=== PATIENT | male | born 1980 | race Caucasian/White ===

== ENCOUNTER 2017-02-17 20:15 | Emergency (ER) | payer OTHER ==
[~2017-02-17] VITALS: Ht 188 cm; Wt 68.2 kg
[2017-02-17 20:21] VITALS: BP 128/91; PULSE 114; RESP 18; O2SAT 99
--- NOTE | 2017-02-17 22:31 | ED.REPORT ---
HPI- Male Date of Service Feb 17, 2017 ED Provider: Darryl Mcgregor MD A 36 year old male presents to the ED complaining of intermittent left testicular pain that began 1 year ago. Patient presents to the ED this evening because of worsening pain. The pain radiates from his left testicle to his lower abdomen. He has been taking doxycycline for the past week. Patient took Aspirin with no relief and denies taking any other OTC medications to help relieve his pain. He recently had a hernia repair at the [facility] one month ago and the pain has persisted. Patient was seen in the [place] ED two days ago for similar testicular pain. He was also seen in the [facility] ED in 2011 for similar pain. He denies fever, vomiting or penile discharge. Patient does not currently have a urologist. Nursing Notes Chief Complaint: Male Abdominal Pain Nursing Notes Reviewed: Yes Allergies: Coded Allergies: No Known Allergies (Verified Allergy, Unknown, 02/17/17) General Time Seen by MD: 21:53 Chief Complaint Testicle painful left Hx Obtained From: Patient Arrived By: Walk-in Onset Occurred: More than a week ago... (>6 months) Symptom Duration: Since onset Location: : Testicle left Quality: Painful Radiation: : Abdomen lower Severity: Current: Moderate Severity: Maximum: Moderate Associated with: Reports: Scrotal swelling, Denies: Fever, Penile discharge... Pertinent Negative: Pt denies other symptoms Recent Healthcare: No recent hospitalization, Recent doctor visit Past Medical History Past Medical History Notes: PCP: Dr. Lema ([place]) Past Medical History None reported. Past Surgical History Hernia repair 1 month ago at [facility] Smoking History Unknown if Ever Smoker Social History Other Social History: Local resident Ambulatory Status Independent Review of Systems Constitutional: Denies: Chills, Fever GI: Reports: Abdominal pain (radiates to lower abdominal pain ), Denies: Nausea, Vomiting Male: Reports Testicular pain, Reports Testicular swelling, Denies Penile discharge Complete sys rev & neg: except as marked. Physical Exam Initial Vital Signs Vital Signs (First) Date Time Temp Pulse Resp B/P Pulse Ox O2 Delivery O2 Flow Rate FiO2 02/17/17 20:21 37.1 114 18 128/91 99 Room Air Initial VS: Reviewed Neck: Supple, Non-tender, Full range of motion Skin: Warm, Dry, No cyanosis Neurologic: Alert, Oriented, Nonfocal Male Genitourinary: Penis NL (Uncircumcised with skin tags ) Testes / Epidid / Scrotum: Positive: Epididymis enlarged L, Epididymis tender L , Testis enlarged L, Testis tender L MALE : Left testicular erythema General/Constitutional: Awake, Alert Abdomen: Atraumatic, Soft Respiratory / Chest: Atraumatic, No respiratory distress Cardiovascular: Pulses = bilaterally Adenopathy: Positive: Inguinal adenopathy L Upper Extremity / MS: Atraumatic, Neurologic intact, Vascular intact Lower Extremity / Pelvis / MS: Atraumatic, Neurologic intact, Vascular intact Interpretation & Diagnostics Interpretation & Diagnostics: Urine culture ordered Lab Results Interpretation Test 02/17/17 23:30 Urine Color Yellow (YELLOW) Urine Appearance Hazy (CLEAR,HAZY) Urine pH 8.5 (5.0-8.0) Urine Specific [place] 1.025 (1.003-1.035) Urine Protein 30mg/dL (NEG,TRACE) Urine Glucose (UA) Negativemg/dL (NEGATIVE) Urine Ketones Tracemg/dL (NEGATIVE) Urine Occult Blood Negative (NEGATIVE) Urine Nitrite Negative (NEGATIVE) Urine Bilirubin Negative (NEGATIVE) Urine Urobilinogen Normalmg/dL (NORMAL) Urine Leukocyte Esterase Negative (NEGATIVE) Urine RBC 0-2/hpf (0-2) Urine WBC 6-10/hpf (0-5) Urine Epithelial Cells Occasional/hpf (NONE-MOD) Urine Crystals None seen (NONE SEEN) Urine Bacteria None/hpf (NONE-FEW) Urine Hyaline Casts None/lpf (NONE) Urine Granular Casts None seen (NONE SEEN) Urine Waxy Casts None seen (NONE SEEN) Urine Red Blood Cell Casts None seen (NONE SEEN) Urine White Blood Cell Casts None seen (NONE SEEN) Urine Mucus Present (None Seen) Urine Trichomonas None seen (NONE SEEN) Urine Yeast None (NONE SEEN) Urinalysis Comment Urine Culture Reflexed Not indicated Lab Results Interpretation: DRUG SCREEN: Positive methamphetamines Positive Oxycodone Re-Eval/Medical Decision Re-Evaluation/Progress : Time of Eval: 23:50 Patient Status: Condition unchanged Re-Evaluation/Progress Note: Patient is rechecked. No response to ketorolac. Mother is expressing concern because the patient has been reporting 10/10 pain for the past year and is seeking further evaluation. She is frustrated and acknowledges that the patient has had several previous US but is requesting another. Patient claims that Percocet was prescribed. Counseled Regarding: Diagnosis, Lab results, Need for follow-up, When/why to return to ED Discharge & Departure Shift Change Sign-Out Patient Care Transferred: Yes Discussed Complaint(s): Yes Laboratory Evaluation: Lab evaluation discussed Imaging Studies: Ordered, not yet done Response to Therapy: Unchanged Dr. Tucker Impression: Primary Impression: Left inguinal pain Disposition: Home Discharge Condition All VS Reviewed: Yes Condition: Improved Additional Instructions: ED evaluation tonight included interview, exam an UA. No acute cause for your pain is found tonight. given 1 year of pain, this needs to be further evaluated by your primary care doctor and possibly a urologist (see referral). Finish the doxycycline started earlier. May use ibuprofen 600mg every 6 hours as needed for pain. Wear supportive underwear and elevate scrotum when able. Referrals: Ahmet Carrasco MD Care Transferred at: 00:00 Ines Attestation Portions of this note were transcribed by Shannon Wan. I, Dr. Mcgregor personally performed the history, physical exam and medical decision-making; I reviewed and confirmed the accuracy of the information in the transcribed note. Signed by: Ines Abdi, 02/18/17 0000. copies to: Ahmet Carrasco MD, Donald L MD Feb 17, 2017 22:31 SHANNON WAN Feb 17, 2017 22:38
[2017-02-17 23:54] LABS: APPEARANCE,URINE HAZY (CLEAR,HAZY); COLOR,URINE YELLOW (YELLOW); OCCULT BLOOD,URINE NEGATIVE (NEGATIVE); PH,URINE 8.5 (5.0-8.0); UROBILINOGEN,URINE NORMAL (NORMAL)
[2017-02-18] MEDS ORDERED: oxyCODONE-Acetamin 5-325 mg Tablet PO ONE
[2017-02-18] MEDS ORDERED: MELO-253 PO (01:49)
[2017-02-18] MEDS ORDERED: DOXY100C2 PO (01:49)
[2017-02-18] MEDS ORDERED: OXYC1TAB24 PO (01:49)
[2017-02-18 01:58] VITALS: BP 139/91; PULSE 107; RESP 18; O2SAT 99
--- NOTE | 2017-02-18 09:37 | DRSVH ---
PROCEDURE: US TESTICULAR SONOGRAM WITH DOPPLER INDICATIONS: L testicular pain TECHNIQUE: Real-time scanning was performed of the scrotum and testicles, with image documentation. Color and p ulse Doppler interrogation was performed of both testicles. COMPARISON: None. FINDINGS: Right: Testicle is normal in size at 3.5 x 2.7 x 2.6 cm, and homogenous in echotexture. There are sc attered nonspecific microcalcifications Epididymis is hyperemic, and heterogeneous. No hydrocele or varicoceles. Overlying scrotal skin is normal in thickness. Left: Testicle is normal in size at 3.6 x 3.2 x 2.6 cm, and homogeneous in echotexture. Scattered n onspecific microcalcifications. Epididymis is heterogeneous and hyperemic. Small left hydrocele. No v aricoceles. Overlying scrotal skin is normal in thickness. Doppler: Color and pulse Doppler demonstrate normal and symmetric arterial flow in both testicles. IMPRESSION: No evidence of testicular torsion or mass. Bilateral scattered testicular microlithiasis, technically nonspecific finding. Bilateral hyperemic epididymis raising possibility of epididymitis although this is technically indet erminate, recommend clinical correlation and to urinalysis. Small left hydrocele. Findings personally discussed with Dr. Chidi Latham in the emergency department 0935 hours 02/18/17. Dictated by: London Longo M.D. on 02/18/2017 at 7:59 Approved by: London Longo M.D. on 02/18/2017 at 9:35
== END 2017-02-18 01:59 | disposition home or self-care (01) ==
LOC: SED 20:15
DX: N45.1 Epididymitis (principal); F17.210 Nicotine dependence, cigarettes, uncomplicated; F15.10 Other stimulant abuse, uncomplicated
CPT/HCPCS: 76870; 81000; 87086; 87491; 87591; 93975; 96372; 99285; J1885